=== PATIENT | female | born 1990 | race Two or more races ===

== ENCOUNTER 2017-08-31 07:40 | Observation (INO) | payer OTHER ==
[~2017-08-31] VITALS: Ht 165.1 cm; Wt 77.3 kg
[2017-08-31] MEDS ORDERED: FAMOTIDINE 20 MG TABLET PO STA (08:03)
[2017-08-31] MEDS ORDERED: FAMOTIDINE 20 MG TABLET ONE (08:07)
[2017-08-31] MEDS ORDERED: ONDANSETRON ODT 4 MG ONE (08:07)
[2017-08-31 08:13] VITALS: BP 119/71
[2017-08-31] MEDS ORDERED: FAMOTIDINE 20 MG TABLET PO ONE (08:30)
[2017-08-31] MEDS ORDERED: ONDANSETRON ODT 8 MG PO ONE (08:30)
[2017-08-31] MEDS ORDERED: FAMOTIDINE 20 MG/2 ML IVPush ONE (09:00)
[2017-08-31] MEDS ORDERED: D5%-LACTATED RINGERS 1,000 ML IV SCH (09:00)
[2017-08-31 09:36] LABS: CLOSTRIDIUM DIFFICILE ANTIGEN NEGATIVE; CLOSTRIDIUM DIFFICILE TOXIN NEGATIVE (Negative)
[2017-08-31] MEDS ORDERED: ONDA4TAB10 PO (10:46)
== END 2017-08-31 11:24 | disposition home or self-care (01) ==
LOC: LDOP 07:40 → LDIP 09:34
PROVIDERS: ADMIT Obstetrics & Gynecology; ATTEND Obstetrics & Gynecology
DX: O99.612 Diseases of the digestive system complicating pregnancy, second trimester (principal); K52.9 Noninfective gastroenteritis and colitis, unspecified; Z3A.24 24 weeks gestation of pregnancy
CPT/HCPCS: 87324; 96361; 96374; G0378; Q0162; 96360; J7121; S0028

== ENCOUNTER 2017-09-03 12:24 | Emergency (ER) | payer OTHER ==
[~2017-09-03] VITALS: Ht 165.1 cm; Wt 75.1 kg
[~2017-09-03 12:24] MED LIST: ONDA4TAB10 PO
[2017-09-03 12:25] VITALS: BP 114/80
[2017-09-03] MEDS ORDERED: ACETAMINOPHEN 500 MG TABLET ONE (14:17)
[2017-09-03] MEDS ORDERED: DIPHENHYDRAMINE 50 MG CAPSULE ONE (14:17)
[2017-09-03] MEDS ORDERED: ACETAMINOPHEN 500 MG TABLET PO ONE (14:30)
[2017-09-03] MEDS ORDERED: DIPHENHYDRAMINE 50 MG CAPSULE PO ONE (14:30)
== END 2017-09-03 14:39 | disposition home or self-care (01) ==
LOC: ED 13:33
DX: O9A.212 Injury, poisoning and certain other consequences of external causes complicating pregnancy, second trimester (principal); S16.1XXA Strain of muscle, fascia and tendon at neck level, initial encounter; R10.31 Right lower quadrant pain; R10.32 Left lower quadrant pain; G89.11 Acute pain due to trauma; Z3A.24 24 weeks gestation of pregnancy; V44.5XXA Car driver injured in collision with heavy transport vehicle or bus in traffic accident, initial encounter; Y93.89 Activity, other specified; Y92.488 Other paved roadways as the place of occurrence of the external cause; Y99.8 Other external cause status
CPT/HCPCS: 76815; 99284

== ENCOUNTER 2017-12-08 16:33 | Outpatient (CLI) | payer OTHER ==
[~2017-12-08] VITALS: Ht 165.1 cm; Wt 82.2 kg
[2017-12-08 17:14] VITALS: BP 128/78
[2017-12-08] MEDS ORDERED: PREN1TAB10 PO (17:35)
== END 2017-12-08 18:55 | disposition home or self-care (01) ==
LOC: LDOP 16:33
PROVIDERS: ATTEND Obstetrics & Gynecology
DX: O36.8130 Decreased fetal movements, third trimester, not applicable or unspecified (principal); Z3A.38 38 weeks gestation of pregnancy
CPT/HCPCS: 59025; 99211; G0463

== ENCOUNTER 2017-12-11 04:07 | Inpatient (IN) | payer OTHER ==
[~2017-12-11] VITALS: Ht 165.1 cm; Wt 83.2 kg
[~2017-12-11 04:07] MED LIST changes: +PREN1TAB10 PO
[2017-12-11] MEDS ORDERED: OXYTOCIN 30U/ 0.9% NaCL 500ML 500 ML IV SCH (04:11)
[2017-12-11] MEDS ORDERED: LACTATED RINGERS 1,000 ML IV SCH ×2 (04:11→04:30)
[2017-12-11] MEDS ORDERED: LACTATED RINGERS 1,000 ML IVBOLUS ONE (04:30)
[2017-12-11] MEDS ORDERED: SODIUM CITRATE/CITRIC ACID 30 ML UDC PO ONE (04:30)
[2017-12-11] MEDS ORDERED: METOCLOPRAMIDE 5 MG/ML, 2ML IV ONE (04:30)
[2017-12-11 04:53] VITALS: BP 116/71
[2017-12-11] MEDS ORDERED: PLEASE ENTER HEIGHT AND WEIGHT MC SCH (05:00)
[2017-12-11 05:03] LABS: BASOPHILS # (AUTO) 0.03 x10^3/uL (0-0.1); BASOPHILS % (AUTO) 0 % (0-1); EOSINOPHILS # (AUTO) 0.13 x10^3/uL (0-0.4); EOSINOPHILS % (AUTO) 1 % (1-7); LYMPHOCYTES # (AUTO) 1.84 x10^3/uL (1-3.4); LYMPHOCYTES % (AUTO) 19 % (22-44); MD NO; MEAN CORPUSCULAR HEMOGLOBIN 28.6 pg (27.0-34.8); MEAN CORPUSCULAR HGB CONC 33.7 g/dL (32.4-35.8); MEAN CORPUSCULAR VOLUME 84.8 fL (80-100); MEAN PLATELET VOLUME 9.8 fL (7.4-10.4); MONOCYTES # (AUTO) 0.71 x10^3/uL (0.2-0.8); MONOCYTES % (AUTO) 7 % (2-9); NEUTROPHILS # (AUTO) 7.07 x10^3/uL (1.8-6.8); NEUTROPHILS % (AUTO) 72 % (42-75); PLATELET COUNT 262 x10^3/uL (130-400); RED BLOOD COUNT 4.55 x10^6/uL (3.82-5.3); RED CELL DISTRIBUTION WIDTH 14.7 % (9.6-15.2)
[2017-12-11] MEDS ORDERED: METOCLOPRAMIDE 5 MG/ML, 2ML ONE (06:59)
[2017-12-11] MEDS ORDERED: SODIUM CITRATE/CITRIC ACID 30 ML UDC ONE (06:59)
[2017-12-11] MEDS ORDERED: OXYTOCIN 10 UNITS/ML, 1ML ONE (07:19)
[2017-12-11] MEDS ORDERED: FENTANYL PF 100 MCG/2ML ONE (07:19)
[2017-12-11] MEDS ORDERED: ONDANSETRON 2MG/ML, 2ML ONE (07:19)
[2017-12-11] MEDS ORDERED: CEFAZOLIN 1,000 MG ONE (07:19)
[2017-12-11] MEDS ORDERED: HYDROmorphone 2 MG/ML, 1ML ONE (07:24)
[2017-12-11] MEDS: LACTATED RINGERS 1,000 ML IV SCH ×5 (07:38→23:38)
[2017-12-11] MEDS: OXYTOCIN 30U/ 0.9% NaCL 500ML 500 ML IV SCH ×2 (07:38→17:38)
[2017-12-11] MEDS ORDERED: ACETAMINOPHEN 325 MG TABLET PO PRN ×2 (08:00)
[2017-12-11] MEDS ORDERED: CALCIUM CARBONATE 500 MG TAB.CHEW PO PRN (08:00)
[2017-12-11] MEDS ORDERED: morphine SULFATE 10 MG/ML, 1ML IVPush PRN ×2 (08:00)
[2017-12-11] MEDS ORDERED: MEASLES,MUMPS&RUBELLA VACC/PF 0.5 ML SQ-VACC PRN (08:00)
[2017-12-11] MEDS ORDERED: DIPH,PERTUSS(ACELL),TET VAC/PF NC IM-VACC PRN (08:00)
[2017-12-11] MEDS ORDERED: ONDANSETRON 2MG/ML, 2ML IV PRN (08:00)
[2017-12-11] MEDS ORDERED: RHOGAM FROM BLOOD BANK 1 NOTE EA IM/IV ONE (08:00)
[2017-12-11] MEDS ORDERED: SIMETHICONE 80 MG CHEW TAB PO PRN (08:00)
[2017-12-11] MEDS ORDERED: MISOPROSTOL 200 MCG TABLET PR PRN (08:00)
[2017-12-11] MEDS: PRENATAL VIT/IRON/FA 1 EACH TABLET PO SCH (09:00)
[2017-12-11] MEDS ORDERED: HYDROcodone/APAP 7.5-325MG/15ML UDC ONE (09:21)
[2017-12-11] MEDS ORDERED: HYDROcodone/APAP 7.5-325MG/15ML UDC PO ONE (09:30)
[2017-12-11] MEDS ORDERED: OXYTOCIN 30U/ 0.9% NaCL 500ML 500 ML ONE (10:42)
[2017-12-11 11:10] VITALS: BP 108/71
[2017-12-11] MEDS: KETOROLAC 30 MG/1 ML IV SCH ×2 (12:02→18:25)
[2017-12-11] MEDS: OXYcodone/APAP 5/325MG TABLET PO PRN ×3 (14:22→22:37)
[2017-12-11 15:30] VITALS: BP 98/62
[2017-12-11 16:25] LABS: BASOPHILS # (AUTO) 0.02 x10^3/uL (0-0.1); BASOPHILS % (AUTO) 0 % (0-1); EOSINOPHILS # (AUTO) 0.14 x10^3/uL (0-0.4); EOSINOPHILS % (AUTO) 1 % (1-7); LYMPHOCYTES # (AUTO) 2.08 x10^3/uL (1-3.4); LYMPHOCYTES % (AUTO) 18 % (22-44); MD NO; MEAN CORPUSCULAR HEMOGLOBIN 28.9 pg (27.0-34.8); MEAN CORPUSCULAR HGB CONC 33.9 g/dL (32.4-35.8); MEAN CORPUSCULAR VOLUME 85.3 fL (80-100); MEAN PLATELET VOLUME 9.5 fL (7.4-10.4); MONOCYTES # (AUTO) 0.77 x10^3/uL (0.2-0.8); MONOCYTES % (AUTO) 7 % (2-9); NEUTROPHILS # (AUTO) 8.39 x10^3/uL (1.8-6.8); NEUTROPHILS % (AUTO) 74 % (42-75); PLATELET COUNT 226 x10^3/uL (130-400); RED BLOOD COUNT 4.18 x10^6/uL (3.82-5.3); RED CELL DISTRIBUTION WIDTH 15.1 % (9.6-15.2)
[2017-12-11 20:00] VITALS: BP 105/66
[2017-12-12 00:11] VITALS: BP 102/69
[2017-12-12] MEDS: KETOROLAC 30 MG/1 ML IV SCH ×4 (00:16→17:56)
[2017-12-12] MEDS: OXYcodone/APAP 5/325MG TABLET PO PRN ×5 (03:02→19:25)
[2017-12-12 03:17] VITALS: BP 100/67
[2017-12-12] MEDS: OXYTOCIN 30U/ 0.9% NaCL 500ML 500 ML IV SCH ×2 (03:38→13:38)
[2017-12-12] MEDS: LACTATED RINGERS 1,000 ML IV SCH ×4 (03:38→15:38)
[2017-12-12 07:20] VITALS: BP 101/67
[2017-12-12] MEDS: PRENATAL VIT/IRON/FA 1 EACH TABLET PO SCH (09:00)
[2017-12-12] MEDS: DOCUSATE 100 MG CAPSULE PO PRN ×2 (13:55→19:25)
[2017-12-12 19:15] VITALS: BP 103/69
[2017-12-13] MEDS: KETOROLAC 30 MG/1 ML IV SCH (00:05)
[2017-12-13] MEDS: IBUPROFEN 600 MG TABLET PO PRN ×4 (00:11→19:16)
[2017-12-13] MEDS: OXYcodone/APAP 5/325MG TABLET PO PRN ×5 (01:11→23:51)
[2017-12-13] MEDS: DOCUSATE 100 MG CAPSULE PO PRN ×2 (07:30→19:16)
[2017-12-13] MEDS: PRENATAL VIT/IRON/FA 1 EACH TABLET PO SCH (07:30)
[2017-12-13 08:30] VITALS: BP 109/68
[2017-12-13 19:20] VITALS: BP 108/73
[2017-12-14] MEDS: IBUPROFEN 600 MG TABLET PO PRN (01:04)
[2017-12-14] MEDS: OXYcodone/APAP 5/325MG TABLET PO PRN ×2 (05:05→09:34)
[2017-12-14 07:25] VITALS: BP 111/61
[2017-12-14] MEDS ORDERED: OXYC-302 PO (08:45)
[2017-12-14] MEDS ORDERED: IBUP-1222 PO (08:45)
[2017-12-14] MEDS: DOCUSATE 100 MG CAPSULE PO PRN (09:31)
[2017-12-14] MEDS: PRENATAL VIT/IRON/FA 1 EACH TABLET PO SCH (09:31)
== END 2017-12-14 11:30 | disposition home or self-care (01) | DRG 788 ==
LOC: LDIP 04:07 → 2NW 11:02
PROVIDERS: ADMIT Obstetrics & Gynecology; ATTEND Obstetrics & Gynecology
PROC: 10D00Z1 Extraction of Products of Conception, Low, Open Approach (ICD-10-PCS; principal; 2017-12-11)
DX: O32.1XX0 Maternal care for breech presentation, not applicable or unspecified (principal); O32.0XX0 Maternal care for unstable lie, not applicable or unspecified; O69.81X0 Labor and delivery complicated by cord around neck, without compression, not applicable or unspecified; Z3A.39 39 weeks gestation of pregnancy; Z37.0 Single live birth; Z87.410 Personal history of cervical dysplasia; Z90.49 Acquired absence of other specified parts of digestive tract; Z88.8 Allergy status to other drugs, medicaments and biological substances; Z91.010 Allergy to peanuts
CPT/HCPCS: 36415; 82803; 85025; 86850; 86900; 89060; G0378; J0690; J1170; J1885; J2405; J3010; J2590; J2765; J7120; Q0114